=== PATIENT | male | born 1960 | race Caucasian/White ===

== ENCOUNTER → 2023-02-10 | Outpatient (CLI) | payer BC ==
--- NOTE | 2023-02-10 12:49 | CT ---
EXAMINATION TYPE: CT chest wo con DATE OF EXAM: 02/10/2023 COMPARISON: 06/01/2015 HISTORY: wheezing CT DLP: 362 mGycm. Automated Exposure Control for Dose Reduction was Utilized. TECHNIQUE: CT scan of the thorax is performed without IV contrast. FINDINGS: There are marked emphysematous changes in the lungs greatest in the upper lobes. There are multiple calcified granulomas within the lungs all of which are stable. No new or suspiciou s lung mass or nodule seen. There is no abnormal airspace/consolidative density or abnormal interstitial density. There is no pleural effusion, pleural thickening or pneumothorax. The great vessels chest are normal is no mediastinal, hilar or axillary adenopathy. Limited scanning the upper abdomen reveals no abnormality. No focal osseous lesions are seen. IMPRESSION: 1. Marked emphysematous changes. 2. Multiple stable calcified angiomas within the lung. 3. No acute cardiopulmonary disease. 4. No interval change.
== END | disposition home or self-care (01) ==
LOC: RADCTMAIN 09:20
PROVIDERS: ATTEND Family Medicine
DX: D18.09 Hemangioma of other sites (principal); J43.9 Emphysema, unspecified; R59.0 Localized enlarged lymph nodes
CPT/HCPCS: 71250

== ENCOUNTER → 2023-11-30 | Outpatient (CLI) | payer BC ==
--- NOTE | 2023-11-30 10:46 | US ---
EXAMINATION TYPE: US groin BILAT DATE OF EXAM: 11/30/2023 COMPARISON: NONE CLINICAL INDICATION: Male, 63 years old with history of R10.31 LRQ PAIN R10.32 LLQ PAIN; RLQ and LLQ pain on and off for months. Assess for bilateral hernias TECHNIQUE: Bilateral inguinal canals scanned in area of pain. FINDINGS: A lymph node measuring 0.7 x 0.5 x 0.3cm was seen in the left groin. No other obvious abno rmality was visualized bilaterally. IMPRESSION: Benign-appearing shotty lymph nodes in the left groin. [facility], , 11/30/2023 10:44 AM
== END | disposition home or self-care (01) ==
LOC: RADUSWWP 07:32
PROVIDERS: ATTEND Family Medicine
CPT/HCPCS: 76882

== ENCOUNTER 2024-06-18 11:39 | Emergency (ER) | payer BC ==
[2024-06-18 11:45] VITALS: TEMP 97.4
[2024-06-18] MEDS: IPRATROPIUM 0.5 MG/2.5 ML NEBU INHALATION STA (12:16)
[2024-06-18] MEDS: ALBUTEROL NEBULIZED 2.5 MG/3 ML INHALATION STA (12:16)
--- NOTE | 2024-06-18 12:27 | ED ---
General Adult HPI - General Chief complaint: Shortness of Breath Stated complaint: SEFERINO Time Seen by Provider: 06/18/24 11:50 Source: patient, RN notes reviewed, old records reviewed Mode of arrival: ambulatory Limitations: no limitations - History of Present Illness Initial comments: This is a 63-year-old male who presents to the emergency department complaining of difficulty breathing. Patient states he is a smoker and does continue to smoke. Patient states this started a couple days ago and has had a cough. Patient denies any fever or chills. Patient denies chest pain or palpitations. Patient has abdominal pain patient has nausea vomiting or diarrhea. - Related Data Previous Rx's Medication Instructions Recorded Albuterol Inhaler [Ventolin Hfa 1 - 2 puff INHALATION Q6HR PRN #1 04/26/15 Inhaler] inhaler Ibuprofen [Motrin] 600 mg PO Q8HR PRN #20 tab 04/26/15 predniSONE 60 mg PO DIRECTED #30 tab 04/26/15 traMADol HCl [Ultram] 50 mg PO Q6H PRN #20 tab 04/26/15 Albuterol Inhaler [Ventolin Hfa 1 - 2 puff INHALATION Q6HR PRN #2 06/18/24 Inhaler] each Amoxic-Pot Clav 875-125Mg 1 tab PO BID 10 Days #20 tab 06/18/24 [Augmentin 875-125] predniSONE [Deltasone] 40 mg PO DAILY #8 tab 06/18/24 Allergies Allergy/AdvReac Type Severity Reaction Status Date / Time No Known Allergies Allergy Verified 06/18/24 11:45 Review of Systems ROS Statement: Those systems with pertinent positive or pertinent negative responses have been documented in the HPI. ROS Other: All systems not noted in ROS Statement are negative. Past Medical History Past Medical History: No Reported History History of Any Multi-Drug Resistant Organisms: None Reported Past Surgical History: No Surgical Hx Reported Past Psychological History: No Psychological Hx Reported Smoking Status: Current every day smoker Past Alcohol Use History: None Reported Past Drug Use History: None Reported General Exam - General Exam Comments Initial Comments: GENERAL: Patient is well-developed and well-nourished. Patient is nontoxic and well- hydrated and is in moderate distress. ENT: Neck is soft and supple. No significant lymphadenopathy is noted. Oropharynx is clear. Moist mucous membranes. Neck has full range of motion without eliciting any pain. EYES: The sclera were anicteric and conjunctiva were pink and moist. Extraocular movements were intact and pupils were equal round and reactive to light. Eyelids were unremarkable. PULMONARY: Patient has diffuse wheezing. CARDIOVASCULAR: There is a regular rate and rhythm without any murmurs gallops or rubs. ABDOMEN: Soft and nontender with normal bowel sounds. SKIN: Skin is clear with no lesions or rashes and otherwise unremarkable. NEUROLOGIC: Patient is alert and oriented x3. Cranial nerves II through XII are grossly intact. Motor and sensory are also intact. Normal speech, volume and content. Symmetrical smile. MUSCULOSKELETAL: Normal extremities with adequate strength and full range of motion. No lower extremity swelling or edema. No calf tenderness. LYMPHATICS: No significant lymphadenopathy is noted PSYCHIATRIC: Normal psychiatric evaluation. Limitations: no limitations Course Vital Signs 06/18/24 06/18/24 06/18/24 11:43 12:16 12:32 Temperature 97.4 F L Pulse Rate 68 72 80 Respiratory 18 Rate Blood Pressure 150/81 O2 Sat by Pulse 98 Oximetry 06/18/24 14:02 Temperature Pulse Rate 80 Respiratory 17 Rate Blood Pressure 127/76 O2 Sat by Pulse 95 Oximetry Medical Decision Making - Medical Decision Making EKG is interpreted by myself. EKG shows a sinus rhythm at 68 bpm MO was 176 QRS is 82 QT interval 382 QTc is 399. Patient's EKG shows no ST segment elevation or depression. Was pt. sent in by a medical professional or institution (, PA, RAIL TECHNICIAN, urgent care, hospital, or long term...) When possible be specific @ -No Did you speak to anyone other than the patient for history (EMS, parent, family, police, friend...)? What history was obtained from this source @ -No Did you review nursing and triage notes (agree or disagree)? Why? @ -I reviewed and agree with nursing and triage notes Were old charts reviewed (outside hosp., previous admission, EMS record, old EKG, old radiological studies, urgent care reports/EKG's, long term records)? Report findings @ -No old charts were reviewed Differential Diagnosis? @ -Differential Dyspnea: Coronary syndrome, arrhythmia, tamponade, asthma, COPD, pulmonary embolism, pneumonia, pneumothorax, pulmonary effusion, anaphylaxis, diabetic ketoacidosis, flailed chest, pulmonary contusion, diaphragmatic rupture, anemia, neuromuscular, this is not meant to be an all-inclusive list. EKG interpreted by me (3pts min.). @ -As above X-rays interpreted by me (1pt min.). @ -Chest x-ray shows no acute abnormality CT interpreted by me (1pt min.). @ -None done U/S interpreted by me (1pt. min.). @ -None done What testing was considered but not performed or refused? (CT, X-rays, U/S, labs)? Why? @ -None What meds were considered but not given or refused? Why? @ -None Did you discuss the management of the patient with other professionals (professionals i.e. DrEmma, PA, RAIL TECHNICIAN, lab, RT, psych nurse, social media editor, telegrapher agent, teacher, environmental technical officer, human services case manager)? Give summary @ -No Was smoking cessation discussed for >3mins.? @ -Yes Was critical care preformed (if so, how long)? @ -No Were there social determinants of health that impacted care today? How? (Homelessness, low income, unemployed, alcoholism, drug addiction, transportation, low edu. Level, literacy, decrease access to med. care, [place] [facility], rehab)? @ -No Was there de-escalation of care discussed even if they declined (Discuss DNR or withdrawal of care, Hospice)? DNR status @ -No What co-morbidities impacted this encounter? (DM, HTN, Smoking, COPD, CAD, Cancer, CVA, ARF, Chemo, Hep., AIDS, mental health diagnosis, sleep apnea, morbid obesity)? @ -None Was patient admitted / discharged? Hospital course, mention meds given and route, prescriptions, significant lab abnormalities, going to OR and other pertinent info. @ -Patient received 2 breathing treatments in the emergency department as well as steroids and antibiotics. Patient will was reevaluated by myself he was feeling considerably better want to be discharged home. Patient states he has a nebulizer at home patient will go home on antibiotics and steroids and will be given inhaler in case he is not at his home when he needs breathing treatment Undiagnosed new problem with uncertain prognosis? @ -No Drug Therapy requiring intensive monitoring for toxicity (Heparin, Nitro, Insulin, Cardizem)? @ -No Were any procedures done? @ -No Diagnosis/symptom? @ -COPD exacerbation Acute, or Chronic, or Acute on Chronic? @ -Acute Uncomplicated (without systemic symptoms) or Complicated (systemic symptoms)? @ -Comp Side effects of treatment? @ -No Exacerbation, Progression, or Severe Exacerbation? @ -Severe exacerbation Poses a threat to life or bodily function? How? (Chest pain, [place], [place], pneumonia, PE, COPD, DKA, ARF, appy, cholecystitis, CVA, Diverticulitis, Homicidal, Suicidal, threat to staff... and all critical care pts) @ -No - Lab Data Result diagrams: 06/18/24 12:22 06/18/24 12:22 Lab Results 06/18/24 06/18/24 06/18/24 Range/Units 12:22 12:22 12:22 WBC 5.79 (4.50-10.00) 10*3/uL RBC 4.59 (4.40-5.60) 10*6/uL Hgb 14.7 (13.0-17.0) g/dL Hct 42.1 (39.6-50.0) % MCV 91.7 (80.0-97.0) fL MCH 32.0 (27.0-32.0) pg MCHC 34.9 (32.0-37.0) g/dL Plt Count 280 (140-440) 10*3/uL MPV 10.5 (9.5-12.2) fL Immature Gran % (Auto) 0.3 % Neutrophils % 65.0 % Lymphocytes % 26.4 % Monocytes % 6.2 % Eosinophils % 1.2 % Basophils % 0.9 % Immature Gran # 0.02 (0.00-0.04) 10*3/uL Neutrophils # 3.76 (1.80-7.70) 10*3/uL Lymphocytes # 1.53 (0.90-5.00) 10*3/uL Monocytes # 0.36 (0.20-1.00) 10*3/uL Eosinophils # 0.07 (0.04-0.35) 10*3/uL Basophils # 0.05 (0.00-0.10) 10*3/uL PT 11.2 (10.0-12.5) sec INR 1.0 (<1.2) APTT 24.2 (22.0-30.0) sec Sodium 140 (137-145) mmol/L Potassium 4.9 (3.5-5.1) mmol/L Chloride 101 (98-107) mmol/L Carbon Dioxide 34 H (22-30) mmol/L Anion Gap 5 mmol/L BUN 9 (9-20) mg/dL Creatinine 0.57 L (0.66-1.25) mg/dL Est GFR (CKD-EPI)AfAm >90 (>60 ml/min/1.73 sqM) Est GFR (CKD-EPI)NonAf >90 (>60 ml/min/1.73 sqM) Glucose 99 (74-99) mg/dL Plasma Lactic Acid Otto (0.7-2.0) mmol/L Calcium 9.2 (8.4-10.2) mg/dL Magnesium 2.1 (1.6-2.3) mg/dL Total Bilirubin 0.7 (0.2-1.3) mg/dL AST 27 (17-59) U/L ALT 23 (4-49) U/L Alkaline Phosphatase 67 (38-126) U/L Troponin I (0.000-0.034) ng/mL Total Protein 7.0 (6.3-8.2) g/dL Albumin 4.0 (3.5-5.0) g/dL 06/18/24 06/18/24 Range/Units 12:22 12:22 WBC (4.50-10.00) 10*3/uL RBC (4.40-5.60) 10*6/uL Hgb (13.0-17.0) g/dL Hct (39.6-50.0) % MCV (80.0-97.0) fL MCH (27.0-32.0) pg MCHC (32.0-37.0) g/dL Plt Count (140-440) 10*3/uL MPV (9.5-12.2) fL Immature Gran % (Auto) % Neutrophils % % Lymphocytes % % Monocytes % % Eosinophils % % Basophils % % Immature Gran # (0.00-0.04) 10*3/uL Neutrophils # (1.80-7.70) 10*3/uL Lymphocytes # (0.90-5.00) 10*3/uL Monocytes # (0.20-1.00) 10*3/uL Eosinophils # (0.04-0.35) 10*3/uL Basophils # (0.00-0.10) 10*3/uL PT (10.0-12.5) sec INR (<1.2) APTT (22.0-30.0) sec Sodium (137-145) mmol/L Potassium (3.5-5.1) mmol/L Chloride (98-107) mmol/L Carbon Dioxide (22-30) mmol/L Anion Gap mmol/L BUN (9-20) mg/dL Creatinine (0.66-1.25) mg/dL Est GFR (CKD-EPI)AfAm (>60 ml/min/1.73 sqM) Est GFR (CKD-EPI)NonAf (>60 ml/min/1.73 sqM) Glucose (74-99) mg/dL Plasma Lactic Acid Otto 1.2 (0.7-2.0) mmol/L Calcium (8.4-10.2) mg/dL Magnesium (1.6-2.3) mg/dL Total Bilirubin (0.2-1.3) mg/dL AST (17-59) U/L ALT (4-49) U/L Alkaline Phosphatase (38-126) U/L Troponin I <0.012 (0.000-0.034) ng/mL Total Protein (6.3-8.2) g/dL Albumin (3.5-5.0) g/dL Disposition Clinical Impression: Acute exacerbation of chronic obstructive pulmonary disease Disposition: HOME SELF-CARE Condition: Good Instructions (If sedation given, give patient instructions): COPD (Chronic Obstructive Pulmonary Disease) (ED) Prescriptions: Amoxic-Pot Clav 875-125Mg [Augmentin 875-125] 1 tab PO BID 10 Days #20 tab predniSONE [Deltasone] 40 mg PO DAILY #8 tab Albuterol Inhaler [Ventolin Hfa Inhaler] 1 - 2 puff INHALATION Q6HR PRN #2 each PRN Reason: Difficulty breathing Is patient prescribed a controlled substance at d/c from ED?: No Referrals: Jonathan Sumner Jr, [Primary Care Provider] - 1-2 days Time of Disposition: 14:11
[2024-06-18] MEDS: methylPREDNISolone SOD SUCCI 125 MG/2 ML VIAL IV STA (12:28)
[2024-06-18] MEDS: MAGNESIUM SULFATE-D5W PMX 1 GM in DEXTROSE/WATER 1 100ML.BAG IVPB STA (12:30)
[2024-06-18 12:32] VITALS: PULSE 80
[2024-06-18 12:33] LABS: Basophils # (A) 0.05 10*3/uL (0.00-0.10); Basophils % (A) 0.9 %; Eosinophils # (A) 0.07 10*3/uL (0.04-0.35); Eosinophils % (A) 1.2 %; HCT 42.1 % (39.6-50.0); HGB 14.7 g/dL (13.0-17.0); Lymphocytes # (A) 1.53 10*3/uL (0.90-5.00); Lymphocytes % (A) 26.4 %; MCHC 34.9 g/dL (32.0-37.0); MCV 91.7 fL (80.0-97.0); Mean Platelet Volume 10.5 fL (9.5-12.2); Monocytes # (A) 0.36 10*3/uL (0.20-1.00); Monocytes % (A) 6.2 %; Neutrophils # (A) 3.76 10*3/uL (1.80-7.70); Platelet Count 280 10*3/uL (140-440); RBC 4.59 10*6/uL (4.40-5.60); RDW 12.1 % (11.5-14.5); WBC 5.79 10*3/uL (4.50-10.00)
[2024-06-18 12:50] LABS: Partial Thromboplastin Time 24.2 sec (22.0-30.0); Prothrombin Time 11.2 sec (10.0-12.5)
[2024-06-18 12:53] LABS: ALT 23 U/L (4-49); AST 27 U/L (17-59); African American GFR (CKD) >90 (>60 ml/min/1.73 sqM); Alkaline Phosphatase 67 U/L (38-126); Anion Gap 5 mmol/L; Blood Urea Nitrogen 9 mg/dL (9-20); Calcium 9.2 mg/dL (8.4-10.2); Carbon Dioxide 34 mmol/L (22-30); Chloride 101 mmol/L (98-107); Glucose 99 mg/dL (74-99); Magnesium 2.1 mg/dL (1.6-2.3); Non-African American GFR(CKD) >90 (>60 ml/min/1.73 sqM); Potassium 4.9 mmol/L (3.5-5.1); Sodium 140 mmol/L (137-145); Total Bilirubin 0.7 mg/dL (0.2-1.3)
--- NOTE | 2024-06-18 13:16 | XR ---
EXAMINATION TYPE: XR chest 2V DATE OF EXAM: 06/18/2024 1:12 PM COMPARISON: Chest radiographs from 02/12/2018, CT chest 02/10/2023 TECHNIQUE: XR chest 2V Frontal and lateral views of the chest. CLINICAL INDICATION:Male, 63 years old with history of difficulty breathing; FINDINGS: Lungs/Pleura: There is flattening of the diaphragm with increased lucency of the lungs. No evidence o f pneumothorax, pleural effusion or focal consolidation. Large bulla within the right lung apex redem onstrated. Pulmonary vascularity: Unremarkable. Heart/mediastinum: Cardiomediastinal silhouette is unremarkable. Musculoskeletal: No acute osseous pathology. IMPRESSION: 1. No acute cardiopulmonary disease process. 2. COPD changes. [facility], , 06/18/2024 1:14 PM
[2024-06-18] MEDS: cefTRIAXone IN SWFI 1,000 MG/10 ML SYRINGE IVP STA ×2 (13:22→13:23)
[2024-06-18 14:03] VITALS: BP 127/76; RESP 17
== END 2024-06-18 14:00 | disposition home or self-care (01) ==
LOC: EC 11:39
DX: J44.1 Chronic obstructive pulmonary disease with (acute) exacerbation (principal); F17.200 Nicotine dependence, unspecified, uncomplicated
CPT/HCPCS: 36415; 94640; 93005; 80053; 83605; 83735; 84484; 85025; 85610; 85730; 87040; 71046; 99285; 96365; 96366; 96375 ×2; J0696; J3475; J2919